=== PATIENT | male | born 1980 | race Caucasian/White ===

== ENCOUNTER 2023-01-17 20:42 | Emergency (ER) | payer OTHER ==
[~2023-01-17] VITALS: Ht 170.2 cm; Wt 104.3 kg
[~2023-01-17 20:42] MED LIST: NO REPORTABLE MEDS
--- NOTE | 2023-01-17 22:33 | NUR ---
PT BIB WITH COMPLAINTS OF LT FOOT PAIN AFTER HEAVY OBJECT FALLING ON IT AT 1PM TODAY.
[2023-01-17] MEDS ORDERED: IBUPROFEN 400 MG TABLET ONE (22:45)
[2023-01-17] MEDS: IBUPROFEN 400 MG TABLET PO ONE (22:50)
--- NOTE | 2023-01-17 22:50 | NUR ---
PT REFUSED TO TAKE IBUBROFEN FOR PAIN. PT STATED HE JUST TOOK IT FEW HOURS AGO AND NEVER WORKED. WILL CONT TO MONITOR
[2023-01-17] MEDS ORDERED: IBUP-1957 PO (23:58)
--- NOTE | 2023-01-18 00:05 | NUR ---
PATIENT WAS PROVIDED WITH GOLDEN WRAP AND CRUTCHES. STABLE FOR D/C. Patient discharged to home in stable condition. Written and verbal after care instructions given. Patient verbalizes understanding of instruction.
[2023-01-18 00:37] VITALS: BP 121/78
== END 2023-01-18 00:05 | disposition home or self-care (01) ==
LOC: ER 20:46
DX: S90.32XA Contusion of left foot, initial encounter (principal); Z88.8 Allergy status to other drugs, medicaments and biological substances; W04.XXXA Fall while being carried or supported by other persons, initial encounter; Y93.89 Activity, other specified; Y92.89 Other specified places as the place of occurrence of the external cause; Y99.8 Other external cause status
CPT/HCPCS: 73630-TC